=== PATIENT | female | born 1970 | race Caucasian/White ===

== ENCOUNTER 2022-12-01 16:09 | Inpatient (IN) ==
[2022-12-01] MEDS ORDERED: oxyCODONE HCL IR 5 MG TAB (IMMEDIATE RELEASE) PO STA (17:04)
--- NOTE | 2022-12-01 17:59 | XRay Report ---
XR ankle RT min 3V routine CLINICAL HISTORY: s/p fall TECHNIQUE: 3 views of the right ankle were obtained. Comparison: None available at the time of this dictation. FINDINGS: There are comminuted fractures of the fibula above the tibiofibular syndesmosis. In addition there ar e fractures of the medial and likely posterior malleolus. There is dislocation of the tibiotalar join t. Widening of the ankle mortise is seen. Soft tissue swelling is seen about the ankle. IMPRESSION: Granger C fracture of the fibula with dislocation of the tibiotalar joint and fractures of the medial a nd likely posterior malleolus. There is ankle mortise widening compatible with syndesmotic injury. ACT 112: Negative or not required by law. Electronically signed by: Reggie Schaeffer M.D. 12/01/2022 5:58 PM
--- NOTE | 2022-12-01 18:04 | XRay Report ---
XR knee LT 1 or 2V routine CLINICAL HISTORY: s/p fall TECHNIQUE: 2 views of the left knee were obtained. Comparison: None available at the time of this dictation. FINDINGS: There is no evidence of an acute fracture. Joint spaces are well-preserved. No joint effusion is seen . A fabella is incidentally seen. IMPRESSION: No evidence of acute osseous injury. ACT 112: Negative or not required by law. Electronically signed by: Reggie Schaeffer M.D. 12/01/2022 6:02 PM
[2022-12-01] MEDS ORDERED: SODIUM CHLORIDE 0.9% 500 ML IV ONE (18:12)
[2022-12-01] MEDS ORDERED: ONDANSETRON INJ 2 MG/ML 2 ML VIAL IV STA (18:12)
[2022-12-01] MEDS ORDERED: MoRPHine SULFATE 10 MG/ML CARP/VIAL IV STA (18:12)
[2022-12-01] MEDS ORDERED: KETOROLAC TROMETHAMINE 15 MG/ML VIAL IV STA (18:12)
[2022-12-01] MEDS ORDERED: fentaNYL citrate PF 100 MCG/2 ML VIAL IV ONE (18:49)
[2022-12-01 19:33] LABS: Hematocrit (blood only) 40.5 % (37.0-47.0); Hemoglobin 13.6 g/dl (12.0-16.0); Mean Corpuscular Hemoglobin 29.1 pg (25.0-34.0); Mean Corpuscular Hgb Conc 33.6 g/dL (32.0-36.0); Mean Corpuscular Volume 86.7 fL (80.0-100.0); Mean Platelet Volume 10.3 fL (9.4-12.4); Platelet Count 318 K/uL (130-400); RDW Coefficient of Variation 13.2 % (11.5-14.5); RDW Standard Deviation 41.5 fL (36.4-46.3); Red Blood Count 4.67 M/uL (4.20-5.40); White Blood Count 13.89 K/ul (4.8-10.8)
--- NOTE | 2022-12-01 19:42 | History & Physical Report ---
Date of Service December 01, 2022 Assessment & Plan (1) Ankle fracture: Plan: Pain management: acetaminophen 1g PO TID, morphine 4mg IV q4h PRN Splint placed in the ER Elevate right lower extremity Consult orthopedics NPO after midnight with IV fluids (2) Mild obstructive sleep apnea: Plan: CPAP HS (3) Hyperlipidemia: Plan: Continue rosuvastatin Plan VTE Prophylaxis - deferred pre-operatively, will defer to orthopedics post operatively Diet - regular, NPO after midnight Disposition - observation status to med/surg Admission and Anticipated Discharge Date Admission Date: December 01, 2022 History of Present Illness Chief Complaint: Ankle pain Primary Care Provider: Cristofer Chi Cathie Lozano is a 52 year old female who presents to the ER with right ankle pain following a fall from 1 foot onto rock pile while hiking. No chest pain, shortness of breath or dizziness prior to falling. Severe pain in her right ankle and knee following fall. Unable to weight bear. Severity 8/10. No other injuries noted from the fall. No history of strokes or heart attacks. She feels she is unfit but no significant chest pain or shortness of breath with walking. Allergies Allergy/AdvReac Type Severity Reaction Status Date / Time Sulfa (Sulfonamide Allergy Intermediate RASH Verified 12/01/22 18:36 Antibiotics) Home Medications Medication Instructions Recorded Confirmed Type rosuvastatin 5 mg tablet 5 mg PO DAILY 01/26/21 12/01/22 History Past Med/Surg History Medical History (Updated 12/01/22 @ 22:03 by Mundo Flores MD) Bruxism Hyperlipidemia Mild obstructive sleep apnea Nocturnal hypoxemia Surgical History H/O hysterectomy with oophorectomy (~11/2013) History of mandibular surgery Family History Other Asthma Social History Smoking Status: Never smoker Hx Alcohol Use: Yes marital status: Current Living Situation: Family current occupational status: employed Feels Safe at Home: Yes Review of Systems Review of Systems: All systems reviewed & are unremarkable except as noted in HPI & below Physical Exam Constitutional: WD/WN, vitals as above Respiratory: normal respiratory effort, lungs clear to auscultation Cardiovascular: RRR, no murmur, no edema Gastrointestinal (Abdomen): normal bowel sounds, soft, nontender, no hepatosplenomegaly Musculoskeletal: Swollen diffusely painful right ankle to palpation. Sensation intact, Cap refill in 1st toe < 2 seconds, DP pulse intact. Skin: no rashes, warm and dry Neurologic: awake; not confused Psychiatric: A+Ox3, euthymic affect Results & Data Results & Data ([facility]) Vital Signs (Past 12 Hours) Vital Signs Temp Pulse Pulse Resp BP BP Pulse Ox 12/01/22 19:00 96 H 18 146/85 H 95 12/01/22 16:29 36.8 C 96 H 20 138/85 98 O2 Del Method 12/01/22 19:00 Room Air 12/01/22 16:29 Room Air Laboratory Results Abnormal lab results 12/01/22 12/01/22 Range/Units 18:40 18:40 WBC 13.89 H (4.8-10.8) K/ul BUN/Creatinine Ratio 23.2 H (10-20) Glucose 106 H (70-99(Fasting)) mg/dl Diagnostic Findings XR ankle RT min 3V routine CLINICAL HISTORY: s/p fall TECHNIQUE: 3 views of the right ankle were obtained. Comparison: None available at the time of this dictation. FINDINGS: There are comminuted fractures of the fibula above the tibiofibular syndesmosis. In addition there are fractures of the medial and likely posterior malleolus. There is dislocation of the tibiotalar joint. Widening of the ankle mortise is seen. Soft tissue swelling is seen about the ankle. IMPRESSION: Granger C fracture of the fibula with dislocation of the tibiotalar joint and fractures of the medial and likely posterior malleolus. There is ankle mortise widening compatible with syndesmotic injury. XR knee LT 1 or 2V routine CLINICAL HISTORY: s/p fall TECHNIQUE: 2 views of the left knee were obtained. Comparison: None available at the time of this dictation. FINDINGS: There is no evidence of an acute fracture. Joint spaces are well-preserved. No joint effusion is seen. A fabella is incidentally seen. Medications Administered ER Medications Given: Oxycodone 5mg PO NSS 500ml bolus Morphine 6mg IV Code Status & VTE Plan Code Status Full VTE Prophylaxis Plan VTE Prophylaxis will be ordered: Yes PG Care Time/CCT Total # of Minutes Spent Total Time Spent with Patient: Total time spent is greater than 50% in coordination of care (as documented) at patient's floor/unit and/or counseling patient: Coding Level of Care Code 68902 INT INP/OBS CARE 2/55MIN Diagnoses Ankle fracture S82.899A Mild obstructive sleep apnea G47.33 Hyperlipidemia E78.5
[2022-12-01] MEDS ORDERED: MoRPHine SULFATE 4 MG/ML 1 ML CARP\\VIAL IV STA (20:14)
[2022-12-01 21:08] LABS: Anion Gap 10 (3-11); Calcium 9.5 mg/dl (8.5-10.1); Carbon Dioxide 25 mmol/L (21-32); Chloride 103 mmol/L (98-107); Potassium 3.7 mmol/L (3.5-5.1); Sodium 138 mmol/L (136-145)
--- NOTE | 2022-12-01 21:08 | Emergency Department Note ---
ED Provider Note History of Present Illness Chief Complaint: Leg Injury/Pain Stated Complaint: FALL,TWISTED L KNEE,R ANKLE PAIN Time Seen by Provider: 12/01/22 16:43 52-year-old female who presents to the emergency department with her son for evaluation of injuries after she fell while hiking this afternoon. The patient reports that she was trying to cross a [place], stepping up onto a log, losing her balance and falling. The patient reports severe pain in her right ankle with a crunching sensation. She also reports left knee pain, and was unable to stand up on the knee because of pain. She did have lots of assistance in helping her out of the gonzalez. The patient denies head injury, neck pain, back pain, chest pain or shortness of breath. She rates her discomfort an 8 out of 10. Home Medications Medication Instructions Recorded Confirmed Type rosuvastatin 5 mg tablet 5 mg PO DAILY 01/26/21 12/01/22 History Allergies Allergy/AdvReac Type Severity Reaction Status Date / Time Sulfa (Sulfonamide Allergy Intermediate RASH Verified 12/01/22 18:36 Antibiotics) Past Med/Surg History Medical History Bruxism Hyperlipidemia Mild obstructive sleep apnea Nocturnal hypoxemia Surgical History H/O hysterectomy with oophorectomy (~11/2013) History of mandibular surgery Family History Other Asthma Social History Smoking Status: Never smoker Hx Alcohol Use: Yes Alcohol type: wine Hx Substance Use: No Preferred Language: Romanian Communication Ability: Effective 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 Beliefs That Will Affect Care: None marital status: Current Living Situation: Spouse and Family Current Living Situation Comment: Lives at home with and 3 kids current occupational status: employed Other Information That Helps Us Care for You: No Feels Safe at Home: Yes Safety Concerns: Feels Safe At This Time Assistive Devices: Glasses Physical Exam Vital Signs Vital Signs - 24 hr 12/01/22 16:29 12/01/22 19:00 Temperature 36.8 C Temperature Source Temporal Artery Scan Pulse Rate 96 H Pulse Rate [Finger] 96 H Respiratory Rate 20 18 Respiratory Effort / Characteristics Non-Labored Respiratory Depth Normal Blood Pressure 138/85 Blood Pressure [Right Arm] 146/85 H Blood Pressure Mean 102 Blood Pressure Mean [Right Arm] 105 Pulse Oximetry 98 95 Oxygen Delivery Method Room Air Room Air Sepsis Recent Fever Within 48 Hours No Sepsis New/Unexplained Change in Mental Status N/A Sepsis Action Taken by Nursing No Action Required CONSTITUTIONAL: Healthy and well nourished. Alert and oriented X 3. GCS 15. Patient appears in moderate discomfort from mostly ankle pain. HEENT: Normocephalic, atraumatic. Pupils equal, round and reactive. NECK: Full active range of motion without discomfort. RESPIRATORY: Clear to auscultation bilaterally with no wheezing, crackles, rhon chi or stridor. CARDIOVASCULAR: Regular rate and rhythm with no murmurs, rubs or gallops. GASTROINTESTINAL: Bowel sounds present in all quadrants. Abdomen is soft and nontender to palpation MUSCULOSKELETAL: Examination shows obvious deformity of the right ankle without any open wounds. Pedal pulses are intact. Patient has no obvious tenderness to palpation of the right proximal leg or knee region. Examination of the left knee shows mild soft tissue edema and anterior ecchymosis. No obvious ligamentous laxity, although full examination was difficult because of patient discomfort. Pedal pulses are intact bilaterally. INTEGUMENTARY: No rash or other significant dermatologic conditions noted. HEMATOLOGIC: No ecchymosis or petechiae. PSYCHIATRIC: Positive affect. NEUROLOGIC: Bilateral lower extremities are sensory intact. Procedures Free Text Procedures Ankle fracture dislocation reduction was performed by me after administering a total of fentanyl 150 mcg IVP for analgesia. The patient remained hemodyn amically stable throughout the procedure. After allowing adequate time for good pain control, reduction was then performed with anterior traction on the calcaneus, with simultaneous medial pressure on the lateral heel/ankle region, as well as molding of the distal fibula. While holding this reduction in place, our fire technician then applied a soft wrap. Initial x-rays in AP view shows good fracture reduction, and suspected good tibiotalar reduction as well. At this point, an Ortho-Glass posterior and stirrup splint was applied. It is noted that the patient maintaining good capillary refill of the toes after reduction and splinting. Repeat 2 view x-rays of the ankle shows adequate reduction. Course Course Patient history and physical exam were performed. Nurses notes were reviewed. Vital signs were reviewed. The patient was initially administered Oxy IR 5 mg for the pain until x-rays could be performed. X-rays of the left knee showed a nondisplaced lateral tibial plateau fracture. X-rays of the right ankle and shows a notable trimalleolar fracture dislocation. X-rays were reviewed with the patient. I did recommend starting an IV for IV pain management, as well as to provide relief for ankle fracture/dislocation reduction. IV access was established, and baseline labs were drawn, reviewed and were normal. There was a delay in this procedure while awaiting staff availability because of change of shift. I did personally perform frequent neurovascular checks every 15 minutes with no compromise throughout this delay period. After having staff availability, successful fracture dislocation was performed using IV fentanyl and Zofran. Postreduction x-rays show satisfactory alignment. The case was discussed with Dr. Pollard, orthopedic surgeon on-call, who recommended that after successful reduction was performed with postreduction x- rays, he has requested a noncontrast CT of the ankle with 3D reconstruction for surgical planning. He also requested hospitalist admission, and he will evalua te the patient in the morning. I did discuss this case with Dr. Flores, [facility] hospitalist, who also spoke with Dr. Pollard on the phone, and has agreed to hospitalist admission. The patient was administered additional IV morphine after her reduction. A knee immobilizer was also applied to the left knee. Please see hospitalist and orthopedic documentation for further treatment and final disposition. An additional final neurovascular check was performed prior to the patient being sent to the [facility] floor, and was still intact while under my care. Administered Medications Acetaminophen (Acetaminophen 500 Mg Tab) 1,000 mg PO Q8 EMILY Stop: 12/31/22 21:59 Last Admin: 12/02/22 05:48 Dose: 1,000 mg Documented By: Admin: 12/01/22 21:31 Dose: 1,000 mg Documented By: ANDRES Lactated Ringer's (Lr) 1,000 mls @ 125 mls/hr IV .Q8H EMILY Stop: 12/02/22 15:59 Last Admin: 12/02/22 09:13 Dose: 125 mls/hr Documented By: Infusion: 12/02/22 09:12 Dose: 0 mls/hr Documented By: Admin: 12/02/22 00:16 Dose: 125 mls/hr Documented By: ANDRES Morphine Sulfate (Morphine Sulfate 4 Mg/Ml 1 Ml Carp\Vial) 4 mg IV Q4H PRN PRN Reason: Pain Stop: 12/15/22 21:24 Last Admin: 12/02/22 09:25 Dose: 4 mg Documented By: Admin: 12/02/22 02:43 Dose: 4 mg Documented By: Admin: 12/01/22 21:47 Dose: 4 mg Documented By: ANDRES Rosuvastatin Calcium (Rosuvastatin Calcium 5 Mg Tab) 5 mg PO DAILY EMILY Stop: 01/01/23 08:59 Last Admin: 12/02/22 07:46 Dose: 5 mg Documented By: INGRID Discontinued Medications Fentanyl Citrate (Fentanyl Citrate 100 Mcg/2 Ml Vial) 200 mcg IV NOW ONE Stop: 12/01/22 18:50 Last Increment: 12/01/22 19:50 Dose: 50 mcg Documented By: JEF Increment: 12/01/22 19:43 Dose: 100 mcg Documented By: JEF Sodium Chloride (Nss) 500 mls @ 999 mls/hr IV .Q31M ONE Stop: 12/01/22 18:42 Last Infusion: 12/01/22 21:12 Dose: 0 mls/hr Documented By: Admin: 12/01/22 20:27 Dose: 999 mls/hr Documented By: MARGUERITE Ketorolac Tromethamine (Ketorolac Tromethamine 15 Mg/Ml Vial) 15 mg IV NOW STA Stop: 12/01/22 18:13 Last Admin: 12/01/22 22:07 Dose: Not Given Documented By: ANDRES Morphine Sulfate (Morphine Sulfate 10 Mg/Ml Carp/Vial) 6 mg IV NOW STA Stop: 12/01/22 18:13 Last Admin: 12/01/22 20:15 Dose: Not Given Documented By: MARGUERITE Morphine Sulfate (Morphine Sulfate 4 Mg/Ml 1 Ml Carp\Vial) 4 mg IV NOW STA Stop: 12/01/22 20:15 Last Admin: 12/01/22 20:28 Dose: 4 mg Documented By: MARGUERITE Ondansetron HCl (Ondansetron Inj 2 Mg/Ml 2 Ml Vial) 4 mg IV NOW STA Stop: 12/01/22 18:13 Last Admin: 12/01/22 20:19 Dose: 4 mg Documented By: JEF Oxycodone HCl (Oxycodone Hcl Ir 5 Mg Tab (Immediate Release)) 5 mg PO NOW STA Stop: 12/01/22 17:05 Last Admin: 12/01/22 17:12 Dose: 5 mg Documented By: MACK Medical Decision Making Medical Records Attestation: I reviewed the patient's medical records. Home Medications was personally reviewed by me Laboratory Data Attestation: I reviewed the patient's lab results. 12/01/22 18:40 12/01/22 18:40 Lab Results 12/01/22 12/01/22 12/01/22 Range/Units 18:39 18:40 18:40 WBC 13.89 H (4.8-10.8) K/ul RBC 4.67 (4.20-5.40) M/uL Hgb 13.6 (12.0-16.0) g/dl Hct 40.5 (37.0-47.0) % MCV 86.7 (80.0-100.0) fL MCH 29.1 (25.0-34.0) pg MCHC 33.6 (32.0-36.0) g/dL RDW Std Deviation 41.5 (36.4-46.3) fL RDW Coeff of Arthur 13.2 (11.5-14.5) % Plt Count 318 (130-400) K/uL MPV 10.3 (9.4-12.4) fL Sodium 138 (136-145) mmol/L Potassium 3.7 (3.5-5.1) mmol/L Chloride 103 (98-107) mmol/L Carbon Dioxide 25 (21-32) mmol/L Anion Gap 10 (3-11) BUN 19 (6-23) mg/dl Creatinine 0.82 (0.6-1.2) mg/dl Est Cr Clr Drug Dosing Not Reportable Est GFR ( Amer) 94.7 ml/min Est GFR (Non-Af Amer) 81.7 ml/min BUN/Creatinine Ratio 23.2 H (10-20) Glucose 106 H (70-99(Fasting)) mg/dl Calcium 9.5 (8.5-10.1) mg/dl SARS-CoV-2, RNA, NAAT NEGATIVE (NEGATIVE) Imaging Data Attestation: I personally reviewed and interpreted this imaging study as follows: My Impression: My interpretation of initial left knee x-ray shows a nondisplaced lateral tibial plateau fracture. Radiologist does not call this fracture. My interpretation of initial right ankle x-ray shows evidence for a trimalleolar fracture dislocation. My interpretation of initial AP view of the right ankle after post reduction shows adequate AP alignment. After additional splinting was applied, a formal 2 view postreduction x-ray was performed, showing adequate reduction. An additional anterior tibial fracture segment is also noted on these x-rays. My interpretation of a noncontrast CT of the ankle again shows adequate reduction, with additional fracture details as discussed on the following radiologist report, which is similar to my interpretation of the above fractures. Radiologist's Impression: Ankle X-Ray 12/01/22 17:04 XR ankle RT min 3V routine CLINICAL HISTORY: s/p fall TECHNIQUE: 3 views of the right ankle were obtained. Comparison: None available at the time of this dictation. FINDINGS: There are comminuted fractures of the fibula above the tibiofibular syndesmosis. In addition there are fractures of the medial and likely posterior malleolus. There is dislocation of the tibiotalar joint. Widening of the ankle mortise is seen. Soft tissue swelling is seen about the ankle. IMPRESSION: Granger C fracture of the fibula with dislocation of the tibiotalar joint and fractures of the medial and likely posterior malleolus. There is ankle mortise widening compatible with syndesmotic injury. ACT 112: Negative or not required by law. Electronically signed by: Reggie Schaeffer M.D. 12/01/2022 5:58 PM Knee X-Ray 12/01/22 17:04 XR knee LT 1 or 2V routine CLINICAL HISTORY: s/p fall TECHNIQUE: 2 views of the left knee were obtained. Comparison: None available at the time of this dictation. FINDINGS: There is no evidence of an acute fracture. Joint spaces are well-preserved. No joint effusion is seen. A fabella is incidentally seen. IMPRESSION: No evidence of acute osseous injury. ACT 112: Negative or not required by law. Electronically signed by: Reggie Schaeffer M.D. 12/01/2022 6:02 PM [facility] Narrative Definitive Fracture Care: Right ankle fracture dislocation, closed, significant displacement with adequate postreduction alignment. Plan: immobilization, narcotic analgesics per hospitalist inpatient orders, and surgical management tomorrow with orthopedics. Splint Care: After the Orthoglass splint was applied by the ED pest control technician, and while I was performing constant traction, I examined the splint and confirmed proper application/placement/position. Neurovascular status was intact both proximal and distal to the splinted area. See ED course for further details of the today's visit. The patient essentially fell while hiking today, suffering a fracture dislocation of the right ankle. Successful reduction was performed by me under IV analgesics. The case was also discussed with orthopedics, who has recommended reduction and splinting until he can evaluate the patient tomorrow for surgical management. Patient also has a nondisplaced left lateral tibial plateau fracture that should heal well on its own. A knee immobilizer was applied for initial management. Further exam ination does not show any other concerning injuries from the patient's fall. Impression Closed fracture dislocation of right ankle, Closed fracture of lateral portion of left tibial plateau Discharge Plan Visit Data Chief Complaint: Leg Injury/Pain Stated Complaint: FALL,TWISTED L KNEE,R ANKLE PAIN ED Provider: Dejon Woods ED Midlevel Provider: Jose Manuel Garcia Discharge Problem: Closed fracture dislocation of right ankle, Closed fracture of lateral portion of left tibial plateau Patient Disposition: Admitted As Inpatient Discharge Instructions Interventions: ED Discharge Assessment Last Done: 12/01/22 21:13 Closed fracture dislocation of right ankle Qualifiers: Encounter type: initial encounter Qualified Code(s): S82.891A - Other fracture of right lower leg, initial encounter for closed fracture Closed fracture of lateral portion of left tibial plateau Qualifiers: Encounter type: initial encounter Qualified Code(s): S82.122A - Displaced fracture of lateral condyle of left tibia, initial encounter for closed fracture
[2022-12-01] MEDS ORDERED: ONDANSETRON INJ 2 MG/ML 2 ML VIAL IV PRN (21:11)
[2022-12-01] MEDS ORDERED: POLYETHYLENE (MIRALAX) 17 GM PACK PO PRN (21:11)
[2022-12-01 21:14] LABS: BUN Creatinine Ratio 23.2 (10-20); Blood Urea Nitrogen 19 mg/dl (6-23); Est GFR (African American) 94.7 ml/min; Est GFR (Non-African American) 81.7 ml/min; Glucose 106 mg/dl (70-99(Fasting))
--- NOTE | 2022-12-01 21:17 | CT Scan Report ---
Exam(s): CT RIGHT ANKLE Without Contrast EXAM: CT Right Lower Extremity Without Intravenous Contrast, Ankle CLINICAL HISTORY: Reason for exam: R ankle fx/dislocation - 3D recon please. TECHNIQUE: Axial computed tomography images of the right ankle without intravenous contrast. CTDI is 19 mGy and DLP is 436.4 mGy-cm. Automated exposure control was utilized for the study. A dose lowering technique was utilized adhering to the principles of ALARA. COMPARISON: No relevant prior studies available. FINDINGS: Trimalleolar fracture (variant), consisting of: 1. Displaced fracture of the medial malleolus, which is mildly comminuted. Widening of the medial ankle mortise measures 5 mm. 2. Mildly displaced, comminuted fracture of the distal fibula, located approximately 10 cm proximal to the distal fibula tip. 3. Mildly displaced, intra-articular fracture of the posterior, distal tibia with approximately 2.5 mm cortical step-off at the articular surface. Intact talus and calcaneus. Circumferential subcutaneous edema. IMPRESSION: Trimalleolar fracture (variant), consisting of: 1. Displaced fracture of the medial malleolus, which is mildly comminuted. Widening of the medial ankle mortise measures 5 mm. 2. Mildly displaced, comminuted fracture of the distal fibula, located approximately 10 cm proximal to the distal fibula tip. 3. Mildly displaced, intra-articular fracture of the posterior, distal tibia with approximately 2.5 mm cortical step-off at the articular surface. Electronically signed by: Abdirahman Carlton MD 12/01/22 21:17 PM
[2022-12-01] MEDS: ACETAMINOPHEN 500 MG TAB PO SCH (21:31)
[2022-12-01] MEDS: MoRPHine SULFATE 4 MG/ML 1 ML CARP\\VIAL IV PRN (21:47)
[2022-12-02] MEDS: LACTATED RINGER'S 1,000 ML IV SCH ×2 (00:16→09:13)
[2022-12-02] MEDS: MoRPHine SULFATE 4 MG/ML 1 ML CARP\\VIAL IV PRN ×2 (02:43→09:25)
[2022-12-02] MEDS: ACETAMINOPHEN 500 MG TAB PO SCH ×3 (05:48→22:39)
[2022-12-02] MEDS: ROSUVASTATIN CALCIUM 5 MG TAB PO SCH (07:46)
--- NOTE | 2022-12-02 07:46 | Hospitalist Progress Note ---
Date of Service December 02, 2022 Assessment & Plan (1) Ankle fracture: Plan: Presented with right ankle pain following a fall yesterday, with right lower extremity imaging showing trimalleolar fracture Patient with continued significant pain despite morphine, so will transition to Dilaudid 1 mg every 4 hours as needed with scheduled Tylenol 1000 mg every 8 hours Orthopedics consulted, for surgical fixation of right trimalleolar fracture today 12/02/2022 Will ultimately need PT and OT to assist with dispo planning (2) Mild obstructive sleep apnea: Plan: CPAP HS (3) Hyperlipidemia: Plan: Continue rosuvastatin (4) Knee pain, left: Plan: In the setting of fall with other injuries as described above Pain control also described above, but can also use ice for knee pain and swelling (5) Leukocytosis: Plan: WBC count of 13.89, no previous labs to compare, will repeat tomorrow but do anticipate this is stress response No evidence of localizable infection Plan VTE Prophylaxis - will defer to orthopedics post operatively Diet - n.p.o. until after surgery, then can have regular diet Disposition - med/surg Admission and Anticipated Discharge Date Admission Date: December 01, 2022 Subjective Patient without any acute events overnight. Reports significant pain in her right ankle and left knee. No other complaints such as chest pain, shortness of breath, lightheadedness. Review of Systems Review of Systems: All systems reviewed & are unremarkable except as noted in Subjective Physical Exam Constitutional: WD/WN, vitals as above Respiratory: normal respiratory effort, lungs clear to auscultation Cardiovascular: RRR, no murmur, no edema Gastrointestinal (Abdomen): normal bowel sounds, soft, nontender, no hepatosplenomegaly Skin: no rashes, warm and dry Psychiatric: A+Ox3, euthymic affect Results & Data Results & Data ([facility]) Vital Signs (Past 12 Hours) Vital Signs Temp Pulse Resp BP Pulse Ox O2 Del Method 12/01/22 20:55 37.3 C 113 H 20 156/80 H 96 Room Air PG Care Time/CCT Total # of Minutes Spent Total Time Spent with Patient: Total time spent is greater than 50% in coordination of care (as documented) at patient's floor/unit and/or counseling patient: Coding Level of Care Code 41085 SUB INP/OBS CARE 2/35MIN Diagnoses Ankle fracture S82.899A Mild obstructive sleep apnea G47.33 Hyperlipidemia E78.5 Knee pain, left M25.562 Leukocytosis D72.829
--- NOTE | 2022-12-02 08:20 | XRay Report ---
XR ankle RT min 3V routine CLINICAL HISTORY: Post-reduction XR TECHNIQUE: 3 views of the right ankle were obtained. Comparison: Comparison is made to abdomen radiograph 12/01/2022 FINDINGS: The foot has been placed in a cast limiting fine bony detail. Comminuted fractures of the fibula as w ell as the medial and posterior malleolus are again seen. The tibiotalar dislocation has been reduced . Tibiofibular widening is somewhat improved. Soft tissue swelling is seen about the ankle. IMPRESSION: Redemonstration of trimalleolar fracture with improved appearance of the fracture fragments. ACT 112: Negative or not required by law. Electronically signed by: Reggie Schaeffer M.D. 12/02/2022 8:18 AM
[2022-12-02] MEDS ORDERED: ROPIVACAINE 0.5% 5 MG/ML 30 ML VIAL ONE (08:23)
--- NOTE | 2022-12-02 08:49 | Orthopedic Consultation ---
Date of Service December 02, 2022 Assessment & Plan (1) Closed fracture dislocation of right ankle: Discussed options with the patient. Given the nature and instability of the right ankle fracture orthopedics recommends surgical fixation of the fracture. We discussed open reduction internal fixation of the fracure including the risks, benefits, and prognosis of the surgery. Decision for surgery was made, she was placed on the surgical schedule for today. She is to remain NPO. The care plan was discussed with Dr. Cristofer Ruano and is in full agreeement. History of Present Illness Reason for Consultation: . Requesting Physician: . Attending Physician: Szuette Whitt DO Patient is a 51 y/o female who was hiking with her family yesterday at [facility]. She jumped up on a log but slipped off and fell. She landed awkwardly on her right ankle and left knee. She could not bear any weight on her ankle. Her family members helped her out of the [place] and got her to [facility] ER. Xrays confirmed a bimalleolar fracture of her right ankle. The fracture was reduced and splinted. She was admitted to the medical service for treatment and care. Orthopedics was consulted. Allergies Allergy/AdvReac Type Severity Reaction Status Date / Time Sulfa (Sulfonamide Allergy Intermediate RASH Verified 12/01/22 18:36 Antibiotics) Home Medications Medication Instructions Recorded Confirmed Type rosuvastatin 5 mg tablet 5 mg PO DAILY 01/26/21 12/01/22 History Past Med/Surg History Medical History Bruxism Hyperlipidemia Mild obstructive sleep apnea Nocturnal hypoxemia Surgical History H/O hysterectomy with oophorectomy (~11/2013) History of mandibular surgery Family History Other Asthma Social History Smoking Status: Never smoker Hx Alcohol Use: Yes Alcohol type: wine Hx Substance Use: No Preferred Language: Lithuanian Communication Ability: Effective Dental Assistant Medical Assistant Required: No Beliefs That Will Affect Care: None marital status: Current Living Situation: Spouse and Family Current Living Situation Comment: Lives at home with and 3 kids current occupational status: employed Other Information That Helps Us Care for You: No Feels Safe at Home: Yes Safety Concerns: Feels Safe At This Time Assistive Devices: Glasses Review of Systems All systems reviewed & are unremarkable except as noted in HPI & below. Physical Exam Patient resting comfortably in bed. Right ankle is well splinted and padded. She has good distal pulses, capillary refill, and she is neurovascularly intact. Results & Data Results & Data Laboratory Results . Diagnostic Findings . PG Care Time/CCT Total # of Minutes Spent Total Time Spent with Patient: Total time spent is greater than 50% in coordination of care (as documented) at patient's floor/unit and/or counseling patient: Coding Level of Care Code 67363 IN/OBS CONSULT LVL 3,45M Diagnoses Closed fracture dislocation of right ankle S82.891A Encounter type: initial encounter (1) Closed fracture dislocation of right ankle Encounter type: initial encounter Qualified Code(s): S82.891A - Other frac ture of right lower leg, initial encounter for closed fracture
--- NOTE | 2022-12-02 11:36 | History & Physical Bridge Note ---
Date of Service December 02, 2022 History & Physical Bridge Note I have examined the patient, reviewed the History & Physical and in the interval since the performance of the History & Physical I have noted the following changes of clinical significance: no changes noted
[2022-12-02] MEDS ORDERED: MIDAZOLAM HCL 1 MG/ML 2ML VIAL ONE ×2 (11:37)
[2022-12-02] MEDS ORDERED: fentaNYL citrate PF 100 MCG/2 ML VIAL ONE ×2 (11:37→12:50)
[2022-12-02] MEDS ORDERED: ceFAZolin 2000MG 2,000 MG/15 ML SYR IV ONE (11:48)
[2022-12-02] MEDS ORDERED: LIDOCAINE 2% MPF LOCAL 5 ML VIAL INFIL ONE (11:54)
[2022-12-02] MEDS ORDERED: ONDANSETRON INJ 2 MG/ML 2 ML VIAL ONE (11:54)
[2022-12-02] MEDS ORDERED: PROPOFOL IV EMULSION 10 MG/ML 20 ML VIAL IV ONE (11:54)
[2022-12-02] MEDS ORDERED: ceFAZolin 2,000 MG/15 ML IV PUSH IV ONE (11:54)
[2022-12-02] MEDS ORDERED: BUPIVACAINE/EPINEPHRINE 0.25% 1:200,000 30 ML VIAL ONE (12:02)
[2022-12-02] MEDS ORDERED: ONDANSETRON INJ 2 MG/ML 2 ML VIAL IV PRN (12:15)
[2022-12-02] MEDS ORDERED: fentaNYL citrate PF 100 MCG/2 ML VIAL IV PRN (12:15)
[2022-12-02] MEDS ORDERED: ATROPINE SULFATE 0.1 MG/ML 10ML SYR IV PRN (12:15)
[2022-12-02] MEDS ORDERED: HYDROmorphone INJ 2 MG/ML SYR/VIAL IV PRN (12:15)
[2022-12-02] MEDS ORDERED: ePHEDrine sulfate 50 MG/ML AMP IV PRN (12:15)
--- NOTE | 2022-12-02 12:17 | Anesthesiology Consultation ---
Date of Service December 02, 2022 Assessment & Plan ASA ASA2 Proposed Anesthesia Anesthesia Type: General Regional Regional Laterality: Right Site: Popliteal and Adductor Canal Risk / Benefits Reviewed With: PT / POA / Parent / Guardian, Accepts Plan and Informed Consent Obtained History Surgery Operation Date: 12/02/22 08:20 Proposed Procedures p Right Open Reduction Internal Fixation Ankle - Cristofer Ruano DO Height/Weight Height: 5 ft 5 in Weight: 112 kg Allergies Allergy/AdvReac Type Severity Reaction Status Date / Time Sulfa (Sulfonamide Allergy Intermediate RASH Verified 12/01/22 18:36 Antibiotics) Medications Home Medications Medication Instructions Recorded Confirmed Last Taken rosuvastatin 5 mg tablet 5 mg PO DAILY 01/26/21 12/01/22 12/01/22 Active Medications Generic Name Dose Route Start Last Admin Trade Name Freq PRN Reason Stop Dose Admin Acetaminophen 1,000 mg 12/01/22 22:00 12/02/22 11:11 Acetaminophen 500 Mg Tab PO 12/31/22 21:59 1,000 mg Q8 EMILY Administration Lactated Ringer's 1,000 mls @ 125 mls/hr 12/02/22 00:00 12/02/22 09:13 Lr IV 12/02/22 15:59 125 mls/hr .Q8H EMILY Administration Rosuvastatin Calcium 5 mg 12/02/22 09:00 12/02/22 07:46 Rosuvastatin Calcium 5 Mg Tab PO 01/01/23 08:59 5 mg DAILY EMILY Administration NPO Date Last Intake of Fluids: 12/01/22 Time Last Intake of Fluids: 23:00 Date Last Intake of Solids: 12/01/22 Time Last Intake of Solids: 22:00 Past Medical History Medical History Bruxism Hyperlipidemia Mild obstructive sleep apnea Nocturnal hypoxemia Exercise / Class Metabolic Activity II 4-5 Yardwork/Stairs/Walk up hill Past Family History Family History Other Asthma Past Surgical History Surgical History H/O hysterectomy with oophorectomy (~11/2013) History of mandibular surgery Past Anesthesia History No Hx of Anesthesia Complications and No Family Hx of Anesthesia Complications History of PONV No Hx of PONV and No Hx of Motion Sickness Social History Smoking Status: Never smoker Hx Alcohol Use: Yes Alcohol type: wine alcohol intake frequency: a few times a month Hx Substance Use: No Review of Systems denies fever/cough/ colds/ chest pain/ SOB/ KENDALL denies KENDALL Physical Exam Vital Signs Last Vital Signs Temp 37 C 12/02/22 11:43 Pulse 100 H 12/02/22 11:43 Resp 18 12/02/22 11:43 BP 141/88 H 12/02/22 11:43 Pulse Ox 95 12/02/22 11:43 O2 Del Method Room Air 12/02/22 11:43 ENMT Mouth: no TMJ abnormality and no dentition abnormality Thyromental Distance: > or= 3.5 Finger Breadths Mallampati Class: II Neck neck extension not limited Respiratory normal respiratory effort; no respiratory distress Auscultation: lungs clear to auscultation bilaterally Cardiovascular Rate/Rhythm: regular rate and regular rhythm Neurologic moves all extremities Psychiatric Orientation: alert and oriented x 3 Testing Laboratory Results 12/01/22 18:40 12/01/22 18:40
[2022-12-02] MEDS ORDERED: BUPIVACAINE 0.25% PF 30 ML VIAL ONE (12:21)
[2022-12-02] MEDS ORDERED: METOCLOPRAMIDE HCL INJ 5 MG/ML 2 ML VIAL ONE (13:05)
[2022-12-02] MEDS ORDERED: DEXAMETHASONE SOD INJ 4 MG/ML VIAL ONE (13:05)
[2022-12-02] MEDS ORDERED: KETAMINE 50 MG/5 ML SYRINGE ONE (13:05)
[2022-12-02] MEDS ORDERED: FAMOTIDINE/PF 20 MG/2 ML VIAL IV ONE (13:24)
[2022-12-02] MEDS ORDERED: KETOROLAC 30 MG/ML VIAL ONE (14:27)
--- NOTE | 2022-12-02 14:47 | Operative Report ---
PG Post Operative Report Pre & Post Diagnosis Operation Date: 12/02/22 08:20 Pre-Op Diagnosis: Fracture dislocation trimalleolar fracture of the right ankle Post-Op Diagnosis: Fracture dislocation trimalleolar fracture of the right ankle I identified the patient and participated in the time-out.: Yes Procedure Operation Date: 12/02/22 08:20 Actual Procedures p Right Open Reduction Internal Fixation trimalleolar right ankle fracture- Cristofer Ruano DO Surgeon Cristofer Ruano DO Casting Associate Cristofer Frausto PA-C Estimated Blood Loss 20 Findings Consistent with Post-Op Diagnosis Specimens None Description of Procedure On December 02, 2022 Cathie was brought down from her hospital room to the preoperative holding area. The operative extremity identified and signed. She was given a preoperative antibiotic. She was taken back to the operative room and laid on the table in supine position. She was put under general anesthesia. The right ankle was prepped and draped in sterile fashion. A timeout was done. The patient and the operative extremity was properly identified. The medial side was fixed first. A curvilinear incision was made over the medial malleolus. Dissection was taken down through the fascia. Care was taken not to disrupt the saphenous vein. The fracture was easily identified. It was reduced with a reduction clamp and held in place with K wires. A Synthes medial malleolus hook plate was then applied. A single compression screw was placed. The screw was then placed up perpendicular to the fracture site. 2 locking screws were placed proximally. Fluoroscopic images showed anatomic reduction and good alignment of the plate. Attention was turned to the lateral side. A long lateral incision was made. Dissection was taken down through the fascia. Care was taken not to disrupt the intermediate branch of the peroneal nerve. The fracture was fully identified. The fracture was reduced with reduction clamps and K wires were placed for provisional fixation. A Synthes 10 hole one third tubular locking plate was then placed. A compression screw was placed both proximally and distally. The K wires were then removed. 3 additional locking screws were placed both proximally and distally. This gave good fixation. The butterfly fragment was tied in place with #1 Vicryl suture. Fin al fluoroscopic images showed anatomic reduction. The ankle was then stressed and there was no disruption of the syndesmosis. The lateral wound was then irrigated. The deep fascia was closed with #0 Vicryl. Skin was closed with 2-0 Vicryl and fran. The medial side was then closed with 2-0 Vicryl and fran. She was then placed in a trauma splint. She was then extubated and transferred to a hospital bed. She was taken to the postanesthesia care unit in stable condition. She tolerated the procedure well. Cristofer Frausto PA-C, was present for the entire procedure. He was critical for pa tient positioning, prepping, draping, retraction exposure, wound closure and application of sterile dressing. I attest to the content of the Intraoperative Record and any orders documented therein. Any exceptions are noted below.
--- NOTE | 2022-12-02 14:52 | Fluoroscopy Report ---
FL ankle RT 2V CLINICAL HISTORY: RIGHT ANKLE ORIFright ankle ORIF COMPARISON STUDY: CT right ankle 12/01/2022 FLUOROSCOPY TIME: 22.8 seconds FLUOROSCOPY IMAGES: 2 EXPOSURE DOSE: 0.57 mGy FINDINGS: Plate and screw fusion of the fibular diaphysis and medial malleolus fixating the acute com minuted fractures. There is improved near anatomic alignment. Satisfactory alignment of the acute pos terior malleolar fracture. Expected postoperative soft tissue swelling with deep tissue air. IMPRESSION: Fluoroscopic assistance as above. ACT 112: Negative or not required by law. Electronically signed by: Andrei Giles M.D. 12/02/2022 2:51 PM
--- NOTE | 2022-12-02 15:26 | XRay Report ---
XR ankle RT min 3V routine HISTORY: 52 years-old Female post op ORIF of the right ankle COMPARISON: 12/01/2022 TECHNIQUE: 3 views of the right ankle FINDINGS: Plate and screw fusion of the fibular diaphysis and medial malleolus fixating the acute comminuted fr actures. There is improved near anatomic alignment. Satisfactory alignment of the acute posterior mal leolar fracture. Expected postoperative soft tissue swelling with deep tissue air. Overlying skin sta ples with casting material. IMPRESSION: Satisfactory alignment of the acute distal tibial and fibular fractures status post ORIF. ACT 112: Negative or not required by law. The above report was generated using voice recognition software. It may contain grammatical, syntax o r spelling errors. Electronically signed by: Andrei Giles M.D. 12/02/2022 3:24 PM
[2022-12-02] MEDS ORDERED: PROMETHAZINE HCL 6.25 MG in SODIUM CHLORIDE 0.9% 50 ML IV PRN (15:32)
[2022-12-02] MEDS ORDERED: PROMETHAZINE HCL INJ 25 MG/ML 1 ML VIAL ONE (15:34)
[2022-12-02] MEDS ORDERED: SODIUM CHLORIDE 0.9% 50 ML BAG ONE (15:34)
--- NOTE | 2022-12-02 16:49 | Anesthesiology Progress Note ---
Date of Service December 02, 2022 Anesthesia Post Procedure Vital Signs Vital Signs: Temp Pulse Pulse Pulse Resp BP Pulse Ox 12/02/22 16:30 36.7 C 90 17 132/83 91 12/02/22 16:05 82 16 131/83 98 12/02/22 15:55 82 15 144/83 H 99 12/02/22 15:45 85 20 136/84 96 12/02/22 15:35 79 15 144/75 H 96 12/02/22 15:25 89 12 150/80 H 96 12/02/22 15:15 94 H 14 139/86 96 12/02/22 15:05 99 H 20 151/91 H 96 12/02/22 14:59 36.0 C L 102 H 15 142/88 H 95 12/02/22 11:43 37 C 100 H 18 141/88 H 95 12/02/22 08:19 37.8 C H 107 H 16 139/89 94 12/01/22 20:55 37.3 C 113 H 20 156/80 H 96 12/01/22 19:00 96 H 18 146/85 H 95 O2 Del Method O2 Flow Rate 12/02/22 16:30 Room Air 12/02/22 16:05 Nasal Cannula 2 12/02/22 15:55 Nasal Cannula 2 12/02/22 15:45 Nasal Cannula 2 12/02/22 15:35 Nasal Cannula 2 12/02/22 15:25 Nasal Cannula 2 12/02/22 15:15 Nasal Cannula 2 12/02/22 15:05 Oxymask 10 12/02/22 14:59 Oxymask 10 12/02/22 11:43 Room Air 12/02/22 08:19 Room Air 12/01/22 20:55 Room Air 12/01/22 19:00 Room Air Pain Intensity Ankle: Pain Intensity: 7 Right Lateral Ankle: Pain Intensity: 5 Transfer of Care Handoff Completed per policy Notes Mental Status: alert / awake / arousable and participated in evaluation Patient Amnestic to Procedure: Yes Nausea / Vomiting: improving with treatment Pain: adequately controlled Airway Patency, RR, SpO2: stable & adequate BP & HR: stable & adequate Hydration State: stable & adequate Anesthetic Complications: no major complications apparent and Pt Satisfied with anesthetic care
[2022-12-03] MEDS: oxyCODONE HCL IR 5 MG TAB (IMMEDIATE RELEASE) PO PRN ×4 (00:20→23:15)
[2022-12-03] MEDS: HYDROmorphone INJ 1 MG/ML SYRINGE IV PRN ×3 (02:41→12:22)
[2022-12-03] MEDS: ACETAMINOPHEN 500 MG TAB PO SCH ×3 (05:52→20:17)
[2022-12-03 06:38] LABS: Hematocrit (blood only) 33.4 % (37.0-47.0); Hemoglobin 11.2 g/dl (12.0-16.0); Mean Corpuscular Hemoglobin 29.3 pg (25.0-34.0); Mean Corpuscular Hgb Conc 33.5 g/dL (32.0-36.0); Mean Corpuscular Volume 87.4 fL (80.0-100.0); Mean Platelet Volume 10.2 fL (9.4-12.4); Platelet Count 265 K/uL (130-400); RDW Coefficient of Variation 13.4 % (11.5-14.5); RDW Standard Deviation 42.6 fL (36.4-46.3); Red Blood Count 3.82 M/uL (4.20-5.40); White Blood Count 13.13 K/ul (4.8-10.8)
[2022-12-03 06:57] LABS: Calcium 8.5 mg/dl (8.5-10.1); Creatinine Clr Calc Pharmacy 100.2 ml/min; Est GFR (African American) 96.1 ml/min; Est GFR (Non-African American) 82.9 ml/min; Potassium 3.9 mmol/L (3.5-5.1)
[2022-12-03] MEDS: ROSUVASTATIN CALCIUM 5 MG TAB PO SCH (07:52)
--- NOTE | 2022-12-03 08:38 | Orthopedic Progress Note ---
Date of Service December 03, 2022 Assessment & Plan (1) Status post ORIF of fracture of ankle: Overall she is doing fairly well. She will be nonweightbearing on both lower extremities for the next 6 weeks. She can be seen by physical therapy and Occupational Therapy today to help learn how to get around in a wheelchair and how to do transfers. She will follow-up with orthopedics in 2 weeks for staple removal of the right ankle. Full orthopedic discharge instructions were placed in the discharge summary. We will keep her on Eliquis 2.5 mg twice a day for DVT prophylaxis for the next 6 weeks. She is orthopedically stable for discharge when medically ready. Subjective Cathie was seen and examined at bedside this morning. Overall she is doing okay. She is not having too much pain. She is nonweightbearing on both legs.. Review of Systems All systems reviewed & are unremarkable except as noted in HPI & below. Physical Exam On physical examination of the right ankle, the trauma splint is clean and dry. She has motion of her toes. Examination of her left knee shows a knee immobilizer in place.. Results & Data Results & Data Laboratory Results . Diagnostic Findings Postoperative x-rays of the right ankle show the fracture to be in anatomic alignment and good alignment of the hardware.. PG Care Time/CCT Total # of Minutes Spent Total Time Spent with Patient: Total time spent is greater than 50% in coordination of care (as documented) at patient's floor/unit and/or counseling patient: Coding Level of Care Code 94285 Post Operative Follow-Up Diagnoses Status post ORIF of fracture of ankle Z98.890; Z87.81
[2022-12-03] MEDS ORDERED: ASPIRIN 81 MG ECTAB PO SCH (09:00)
[2022-12-03] MEDS: APIXABAN 2.5 MG TAB PO SCH ×2 (09:16→20:18)
--- NOTE | 2022-12-03 09:28 | Hospitalist Progress Note ---
Date of Service December 03, 2022 Assessment & Plan (1) Ankle fracture: Plan: Presented with right ankle pain following a fall 12/01, with right lower extremity imaging showing trimalleolar fracture Tylenol 1000mg q8h scheduled, add toradol 10mg q8h scheduled, increase oxycodone to 10mg dosing, with Dilaudid as needed for breakthrough pain Orthopedics consulted, s/p surgical fixation of right trimalleolar fracture 12/02/2022 Ultimately for discharge home with PT, family support, nonweightbearing for 6 weeks (2) Mild obstructive sleep apnea: Plan: CPAP HS (3) Hyperlipidemia: Plan: Continue rosuvastatin (4) Knee pain, left: Plan: In the setting of fall with other injuries as described above Pain control also described above, but can also use ice for knee pain and swelling (5) Leukocytosis: Plan: WBC count of 13.89 -> 13.13, no previous labs to compare, will repeat tomorrow but do anticipate this is stress response No evidence of localizable infection Plan VTE Prophylaxis - will defer to orthopedics post operatively Diet - n.p.o. until after surgery, then can have regular diet Disposition - med/surg Admission and Anticipated Discharge Date Admission Date: December 01, 2022 Subjective No acute events overnight. Much difficulty and frustration with transfer from bed to wheelchair. Pain in right ankle and left knee still significant, though helped with PRNs. No other complaints. Review of Systems Review of Systems: All systems reviewed & are unremarkable except as noted in Subjective Physical Exam Constitutional: WD/WN, vitals as above Respiratory: normal respiratory effort, lungs clear to auscultation Cardiovascular: RRR, no murmur, no edema Gastrointestinal (Abdomen): normal bowel sounds, soft, nontender, no hepatosplenomegaly Skin: no rashes, warm and dry Psychiatric: A+Ox3, euthymic affect Results & Data Results & Data ([facility]) Vital Signs (Past 12 Hours) Vital Signs Temp Pulse Resp BP Pulse Ox O2 Del Method O2 Flow Rate 12/03/22 06:58 36.9 C 92 H 16 118/81 95 Room Air 12/03/22 02:44 38.1 C H 94 H 18 98/62 L 94 Room Air 12/02/22 23:06 36.9 C 104 H 16 112/68 95 Nasal Cannula 2 PG Care Time/CCT Total # of Minutes Spent Total Time Spent with Patient: Total time spent is greater than 50% in coordination of care (as documented) at patient's floor/unit and/or counseling patient: Coding Level of Care Code 45834 SUB INP/OBS CARE 235MIN Diagnoses Ankle fracture S82.899A Mild obstructive sleep apnea G47.33 Hyperlipidemia E78.5 Knee pain, left M25.562 Leukocytosis D72.829
[2022-12-03] MEDS: KETOROLAC TROMETHAMINE 10 MG TABLET PO SCH ×2 (13:48→20:17)
[2022-12-04 05:53] LABS: Hematocrit (blood only) 33.5 % (37.0-47.0); Hemoglobin 11.1 g/dl (12.0-16.0); Mean Corpuscular Hemoglobin 29.1 pg (25.0-34.0); Mean Corpuscular Hgb Conc 33.1 g/dL (32.0-36.0); Mean Corpuscular Volume 87.7 fL (80.0-100.0); Platelet Count 248 K/uL (130-400); RDW Coefficient of Variation 13.6 % (11.5-14.5); RDW Standard Deviation 43.8 fL (36.4-46.3); Red Blood Count 3.82 M/uL (4.20-5.40); White Blood Count 10.58 K/ul (4.8-10.8)
[2022-12-04] MEDS: KETOROLAC TROMETHAMINE 10 MG TABLET PO SCH ×3 (05:54→21:11)
[2022-12-04] MEDS: ACETAMINOPHEN 500 MG TAB PO SCH ×3 (05:54→21:11)
[2022-12-04 06:11] LABS: BUN Creatinine Ratio 20.7 (10-20); Calcium 8.5 mg/dl (8.5-10.1); Est GFR (African American) 94.7 ml/min; Est GFR (Non-African American) 81.7 ml/min
[2022-12-04] MEDS: APIXABAN 2.5 MG TAB PO SCH ×2 (07:22→21:11)
[2022-12-04] MEDS: ROSUVASTATIN CALCIUM 5 MG TAB PO SCH (07:22)
[2022-12-04] MEDS: oxyCODONE HCL IR 5 MG TAB (IMMEDIATE RELEASE) PO PRN ×3 (07:25→23:23)
--- NOTE | 2022-12-04 08:27 | Discharge Summary ---
Discharge Summary Date of Service December 04, 2022 Admission HPI Per Admitting Provider Cathie Lozano is a 52 year old female who presents to the ER with right ankle pain following a fall from 1 foot onto rock pile while hiking. No chest pain, shortness of breath or dizziness prior to falling. Severe pain in her right ankle and knee following fall. Unable to weight bear. Severity 8/10. No other injuries noted from the fall. No history of strokes or heart attacks. She feels she is unfit but no significant chest pain or shortness of breath with walking. Principal Dx & Hospital Course #1 = Principal Diagnosis (1) Ankle fracture: Presented with right ankle pain following a fall 12/01, with right lower extremity imaging showing trimalleolar fracture Tylenol 1000mg q8h scheduled, add toradol 10mg q8h scheduled, increase oxycodone to 10mg dosing, with Dilaudid as needed for breakthrough pain Orthopedics consulted, s/p surgical fixation of right trimalleolar fracture 12/02/2022 Ultimately for discharge home with PT, family support, nonweightbearing for 6 weeks (2) Mild obstructive sleep apnea: CPAP HS (3) Hyperlipidemia: Continue rosuvastatin (4) Knee pain, left: In the setting of fall with other injuries as described above Pain control also described above, but can also use ice for knee pain and swelling (5) Leukocytosis: WBC count of 13.89 -> 13.13, no previous labs to compare, will repeat tomorrow but do anticipate this is stress response No evidence of localizable infection Plan VTE Prophylaxis - will defer to orthopedics post operatively Diet - n.p.o. until after surgery, then can have regular diet Disposition - med/surg Updated Medication List Medication Instructions Recorded Confirmed Type rosuvastatin 5 mg tablet 5 mg PO DAILY 01/26/21 12/01/22 History Hospital Stay Data Procedures Performed Operation Date: 12/02/22 08:20 Actual Procedures p Right Open Reduction Internal Fixation Ankle(Right) - Cristofer Ruano DO Diagnostic Imagining Performed 12/01/22 20:15 CT ankle RT wo con Stat 12/02/22 FL ankle RT 2V Routine 12/02/22 12:15 US - OR guided needle placemen Routine Pending Results Patient Have Any Pending Studies at Discharge: No Discharge Instructions Given to Patient (Per Discharging Provider) ORTHOPEDIC INSTRUCTIONS Activity Recommendations: Nonweightbearing on both legs for the next 6 weeks Medications: Take Eliquis 2.5 mg twice a day for the next 6 weeks. Dressing Care: Leave the trauma splint in place until follow-up in the office in 2 weeks. May open up the left knee immobilizer to get air to the skin, and to bathe, but no weightbearing on the left knee. Showering: Do not get the right trauma splint wet. Follow-Up Visit: Follow-up with Dr. Ruano's PA (Cristofer Frausto) 2-3 weeks after your day of surgery. He will remove your fran and answer any questions. If you have any additional questions or concerns, Dr Ruano is usually in the office at the same time and will be available Please call the office to make an appointment for a time that works for you. Coding Diagnoses Ankle fracture S82.899A Mild obstructive sleep apnea G47.33 Hyperlipidemia E78.5 Knee pain, left M25.562 Leukocytosis D72.829
--- NOTE | 2022-12-04 09:15 | Hospitalist Progress Note ---
Date of Service December 04, 2022 Assessment & Plan (1) Ankle fracture: Plan: Presented with right ankle pain following a fall 12/01, with right lower extremity imaging showing trimalleolar fracture Tylenol 1000mg q8h scheduled, Toradol 10mg q8h scheduled, prn oxycodone 10mg q6h; did not need Dilaudid overnight with these changes Orthopedics consulted, s/p surgical fixation of right trimalleolar fracture 12/02/2022, have since signed off Due to difficulty with maneuvering, need for help with transfers and education on safe transfers, believe that patient would benefit from short course therapy, PT recommends as well, will have place referrals (2) Mild obstructive sleep apnea: Plan: CPAP HS (3) Hyperlipidemia: Plan: Cont rosuvastatin (4) Knee pain, left: Plan: In the setting of fall with other injuries as described above, see Ortho notes for fracture description Pain control also described above, but can also use ice for knee pain and swelling (5) Leukocytosis: Plan: WBC count of 13.89 -> 10.58, no previous labs to compare, suspect due to stress response No evidence of localizable infection Plan VTE Prophylaxis - apixiban 2.5mg BID Diet - regular diet Disposition - med/surg Admission and Anticipated Discharge Date Admission Date: December 03, 2022 Subjective Much better pain control overnight. Patient is fearful of going home, as her home is not wheelchair accessible. She discussed this with PT who recommended rehab if covered. She needs assistance with transfers and education on safe wheelchair to bed transfers and vice versa. Review of Systems Review of Systems: All systems reviewed & are unremarkable except as noted in Subjective Physical Exam Constitutional: WD/WN, vitals as above Respiratory: normal respiratory effort, lungs clear to auscultation Cardiovascular: RRR, no murmur, no edema Gastrointestinal (Abdomen): normal bowel sounds, soft, nontender, no hepatosplenomegaly Skin: no rashes, warm and dry Psychiatric: A+Ox3, euthymic affect Results & Data Results & Data ([facility]) Vital Signs (Past 12 Hours) Vital Signs Temp Pulse Pulse Resp BP Pulse Ox O2 Del Method 12/04/22 08:00 Room Air 12/04/22 07:19 88 95 Room Air 12/04/22 07:09 37.0 C 92 H 16 115/73 91 Room Air 12/03/22 20:15 37.4 C 97 H 20 116/74 95 Room Air PG Care Time/CCT Total # of Minutes Spent Total Time Spent with Patient: Total time spent is greater than 50% in coordination of care (as documented) at patient's floor/unit and/or counseling patient: Coding Level of Care Code 47652 SUB INP/OBS CARE 10/19MIN Diagnoses Ankle fracture S82.899A Mild obstructive sleep apnea G47.33 Hyperlipidemia E78.5 Knee pain, left M25.562 Leukocytosis D72.829
[2022-12-05] MEDS: ACETAMINOPHEN 500 MG TAB PO SCH ×3 (05:25→21:02)
[2022-12-05] MEDS: KETOROLAC TROMETHAMINE 10 MG TABLET PO SCH ×3 (05:25→21:02)
[2022-12-05] MEDS: ROSUVASTATIN CALCIUM 5 MG TAB PO SCH (08:02)
[2022-12-05] MEDS: APIXABAN 2.5 MG TAB PO SCH ×2 (08:02→20:38)
--- NOTE | 2022-12-05 12:33 | Hospitalist Progress Note ---
Date of Service December 05, 2022 Assessment & Plan (1) Ankle fracture: Plan: Presented with right ankle pain following a fall 12/01, with right lower extremity imaging showing trimalleolar fracture Tylenol 1000mg q8h scheduled, Toradol 10mg q8h scheduled, prn oxycodone 10mg q6h; has not needed IV Dilaudid with these changes Orthopedics consulted, s/p surgical fixation of right trimalleolar fracture 12/02/2022, have since signed off Due to difficulty with maneuvering, need for help with transfers and education on safe transfers, believe that patient would benefit from short course therapy, PT recommends as well, referrals in process by case management Eliquis 2.5 mg twice daily ordered by orthopedics for DVT prophylaxis (2) Mild obstructive sleep apnea: Plan: CPAP HS (3) Hyperlipidemia: Plan: Cont rosuvastatin (4) Knee pain, left: Plan: In the setting of fall with other injuries as described above, see Ortho notes for fracture description Pain control also described above, but can also use ice for knee pain and swelling (5) Leukocytosis: Plan: WBC count of 13.89 -> 10.58, no previous labs to compare, suspect due to stress response No evidence of localizable infection (6) Morbid obesity: Plan: Morbid obesity, BMI 41.1 kg/m*m Defer management to PCP (7) Constipation: Plan: No BM since admission, in the setting of relative immobility and opiate pain medication use for fractures as described above Did schedule MiraLAX with enema as needed per patient request. Plan VTE Prophylaxis - apixiban 2.5mg BID Diet - regular diet Disposition - med/surg Admission and Anticipated Discharge Date Admission Date: December 03, 2022 Subjective No acute events overnight. Patient with right ankle and left knee pain alleviated with ice, as needed medications. She complains of some abdominal fullness and bloating today, no BM since coming into the hospital. Having difficulty with the idea of going to the bathroom on a bedpan. Denies nausea. Review of Systems Review of Systems: All systems reviewed & are unremarkable except as noted in Subjective Physical Exam Constitutional: WD/WN, vitals as above Respiratory: normal respiratory effort, lungs clear to auscultation Cardiovascular: RRR, no murmur, no edema Gastrointestinal (Abdomen): normal bowel sounds, soft, nontender, no hepatosplenomegaly Abdomen mildly distended Skin: no rashes, warm and dry Psychiatric: A+Ox3, euthymic affect Results & Data Results & Data ([facility]) Vital Signs (Past 12 Hours) Vital Signs Temp Pulse Resp BP Pulse Ox O2 Del Method 12/05/22 08:00 Room Air 12/05/22 07:55 36.8 C 87 17 120/72 95 Room Air PG Care Time/CCT Total # of Minutes Spent Total Time Spent with Patient: Total time spent is greater than 50% in coordination of care (as documented) at patient's floor/unit and/or counseling patient: Coding Level of Care Code 26798 SUB INP/OBS CARE 10/19MIN Diagnoses Ankle fracture S82.899A Mild obstructive sleep apnea G47.33 Hyperlipidemia E78.5 Knee pain, left M25.562 Leukocytosis D72.829 Morbid obesity E66.01 Constipation K59.00
[2022-12-05] MEDS ORDERED: SOD PHOSPHATE/SOD BIPHOSPHATE ENEMA 132 ML BTL PR PRN (13:19)
[2022-12-06] MEDS: KETOROLAC TROMETHAMINE 10 MG TABLET PO SCH ×3 (05:44→20:33)
[2022-12-06] MEDS: ACETAMINOPHEN 500 MG TAB PO SCH ×3 (05:44→20:34)
--- NOTE | 2022-12-06 07:04 | Orthopedic Progress Note ---
Date of Service December 06, 2022 Assessment & Plan (1) Status post ORIF of fracture of ankle: Overall she is doing as well as expected. She will be nonweightbearing on both legs for about 6 weeks. Her right ankle is elevated. She is on Eliquis 2.5 mg twice a day. She is orthopedically stable for discharge when medically ready. Full orthopedic discharge instructions were placed in the discharge summary. She will follow-up orthopedics in 2 weeks. Evert Brand was seen and examined at bedside this morning. Overall she is doing okay. She is not having too much pain in her ankle or her knee. She understands that she needs to be nonweightbearing on both legs for now. She is currently awaiting placement at a rehab facility.. Review of Systems All systems reviewed & are unremarkable except as noted in HPI & below. Physical Exam Physical examination of the right ankle shows that the trauma splint is elevated. She has active motion of her toes. Sensations intact. Examination of her left knee shows that she is in the knee immobilizer.. Results & Data Results & Data Laboratory Results . Diagnostic Findings . PG Care Time/CCT Total # of Minutes Spent Total Time Spent with Patient: Total time spent is greater than 50% in coordination of care (as documented) at patient's floor/unit and/or counseling patient: Coding Level of Care Code 59032 Post Operative Follow-Up Diagnoses Status post ORIF of fracture of ankle Z98.890; Z87.81
[2022-12-06] MEDS: POLYETHYLENE (MIRALAX) 17 GM PACK PO SCH (08:22)
[2022-12-06] MEDS: APIXABAN 2.5 MG TAB PO SCH ×2 (08:23→20:33)
[2022-12-06] MEDS: ROSUVASTATIN CALCIUM 5 MG TAB PO SCH (08:23)
[2022-12-06] MEDS ORDERED: bisacodyL 10 MG SUPP PR STA (10:43)
[2022-12-06] MEDS: SENNA 8.6 MG TAB PO SCH (11:30)
[2022-12-06 12:45] LABS: BUN Creatinine Ratio 25.7 (10-20); Calcium 9.1 mg/dl (8.5-10.1); Creatinine Clr Calc Pharmacy 115.9 ml/min; Est GFR (African American) 114.6 ml/min; Est GFR (Non-African American) 98.9 ml/min; Magnesium 2.2 mg/dl (1.7-2.4); Potassium 4.7 mmol/L (3.5-5.1)
--- NOTE | 2022-12-06 19:24 | Hospitalist Progress Note ---
Date of Service December 06, 2022 Assessment & Plan (1) Ankle fracture: Plan: right - s/p fall x-rays with trimalleolar fracture s/p ORIF 12/02/22 by orthopedics, Dr Ruano cont the following for pain relief - Tylenol 1000mg q8h scheduled, Toradol 10mg q8h scheduled, prn oxycodone 10mg q6h eliquis 2.5mg BID for DVT proph NWB status to RLE dispo - rehab post-discharge; EXCELLENT inpatient rehab candidate will need DEXA scan as outpatient in future (2) Left tibial fracture: Plan: discussed with orthopedics today - cont NWB status to LLE with knee immobilizer in place nonoperative Rx 25-OH vit D level robust as noted above (3) Mild obstructive sleep apnea: Plan: CPAP HS (4) Hyperlipidemia: Plan: Cont rosuvastatin (5) Morbid obesity: Plan: BMI 41 (6) Constipation: Plan: improved s/p enema yesterday for maintenance - add senokot to miralax; take both daily (7) DVT prophylaxis: Plan: Eliquis 2.5mg BID recommend d/c on such and Rx for 6 weeks (or longer depending on duration of NWB status) Plan dispo - [facility] rehab? unsafe to return home; her house is not yet equipped to accommodate her b/l leg NWB status Admission and Anticipated Discharge Date Admission Date: December 03, 2022 Subjective patient did have BM yesterday with use of enema despite such she still feels bloated & full with poor appetite no nausea or emesis, however patient frustrated by her current status including non-weightbearing status to both legs she states her home is not equipped - at least not currently - to accommodate her NWB status she is motivated to attend inpatient rehab to learn all techniques etc to optimize her function c/o mild left knee & right ankle pain but no worse than prior Review of Systems Review of Systems: gen - no fevers cv - no chest pain pulm - no dyspnea GI - constipation/bloating Physical Exam Physical Exam: gen - pleasant, NAD mouth - MMM neck - no JVD heart - RRR, s1 s2, no murmur lungs - slightly decreased BS bases otherwise CTA b/l abd - soft, slightly distended, BS+, NT musculo - left knee in immobilizer; right ankle/foot/distal leg in large splint; toes exposed right foot with normal cap refill; pulses b/l feet 2+ psych - a/o x 3 Results & Data Results & Data ([facility]) Vital Signs (Past 12 Hours) Vital Signs Temp Pulse Resp BP Pulse Ox O2 Del Method 12/06/22 16:00 36.8 C 93 H 18 119/70 97 Room Air 12/06/22 07:30 Room Air 12/06/22 07:40 36.7 C 85 18 132/85 96 Room Air Laboratory Results Laboratory Results - last 24 hr 12/06/22 12/06/22 11:29 11:29 Sodium 138 Potassium 4.7 Chloride 105 Carbon Dioxide 24 Anion Gap 9 BUN 18 Creatinine 0.70 Est Cr Clr Drug Dosing 115.9 Est GFR ( Amer) 114.6 Est GFR (Non-Af Amer) 98.9 BUN/Creatinine Ratio 25.7 H Glucose 99 Calcium 9.1 Magnesium 2.2 25-OH Vitamin D Total 44.7 PG Care Time/CCT Total # of Minutes Spent Total Time Spent with Patient: Total time spent is greater than 50% in coordination of care (as documented) at patient's floor/unit and/or counseling patient: Coding Level of Care Code 04260 SUB INP/OBS CARE 2/35MIN Diagnoses Ankle fracture S82.899A Left tibial fracture S82.202A Mild obstructive sleep apnea G47.33 Hyperlipidemia E78.5 Morbid obesity E66.01 Constipation K59.00 DVT prophylaxis Z29.9
[2022-12-07] MEDS: ACETAMINOPHEN 500 MG TAB PO SCH ×3 (05:05→20:07)
[2022-12-07] MEDS: KETOROLAC TROMETHAMINE 10 MG TABLET PO SCH ×3 (05:05→20:06)
[2022-12-07] MEDS: ROSUVASTATIN CALCIUM 5 MG TAB PO SCH (08:29)
[2022-12-07] MEDS: APIXABAN 2.5 MG TAB PO SCH ×2 (08:29→20:07)
[2022-12-07] MEDS: POLYETHYLENE (MIRALAX) 17 GM PACK PO SCH ×2 (08:29→21:22)
[2022-12-07] MEDS: SENNA 8.6 MG TAB PO SCH (08:29)
--- NOTE | 2022-12-07 14:59 | Hospitalist Progress Note ---
Date of Service December 07, 2022 Assessment & Plan (1) Ankle fracture: Plan: right - s/p fall x-rays with trimalleolar fracture s/p ORIF 12/02/22 by orthopedics, Dr Ruano cont the following for pain relief - Tylenol 1000mg q8h scheduled, Toradol 10mg q8h scheduled, prn oxycodone 10mg q6h today is day #5 of toradol - will d/c tonight eliquis 2.5mg BID for DVT proph NWB status to RLE dispo - rehab post-discharge; EXCELLENT inpatient rehab candidate; insurance has approved [facility]; await bed there will need DEXA scan as outpatient in future (2) Left tibial fracture: Plan: nondisplaced cont NWB status to LLE with knee immobilizer in place nonoperative Rx 25-OH vit D level robust as noted above (3) Mild obstructive sleep apnea: Plan: CPAP HS (4) Hyperlipidemia: Plan: Cont rosuvastatin (5) Morbid obesity: Plan: BMI 41 (6) Constipation: Plan: increase miralax to BID dosing cont senna dulcolax suppos x 1 today if desired (7) DVT prophylaxis: Plan: Eliquis 2.5mg BID recommend d/c on such and Rx for 6 weeks (or longer depending on duration of NWB status) Plan ongoing anorexia -- checked u/a - not terribly suspicious for UTI, but culture sent urine very concentrated and SG high - patient was dizzy today with moving -- NS x 2 liters overnight repeat BMP in am updated by phone this evening hopefully to [facility] soon when bed is available Admission and Anticipated Discharge Date Admission Date: December 03, 2022 Subjective pt c/o ongoing poor appetite has pain in R ankle mainly when she is up in the chair minimal L knee pain continues with constipation issues still feels bloated but no N/V no other new issues Review of Systems Review of Systems: gen - no fevers or chills or infectious symptoms HENT - no sore throat or runny nose cv - no cp pulm - no cough or dyspnea GI - no vomiting - had some mild bladder pain yesterday neuro - mild dizziness w/ getting up into the chair Physical Exam Physical Exam: gen - pleasant, NAD mouth - MM slightly dry neck - no JVD heart - RRR, s1 s2, no murmur lungs - CTA b/l abd - soft, NT, BS+, scantly distended musculo - left knee in immobilizer; right ankle/foot/distal leg in large splint; toes exposed right foot with normal cap refill; pulses b/l feet 2+ psych - a/o x 3 Results & Data Results & Data Vital Signs (Past 12 Hours) Vital Signs Temp Pulse Resp BP Pulse Ox O2 Del Method 12/07/22 08:30 Room Air 12/07/22 07:41 37.1 C 88 18 129/85 95 Room Air Laboratory Results Laboratory Results - last 24 hr 12/07/22 18:45 Urine Color Dark Yellow Urine Appearance Clear Urine pH 5.0 Ur Specific [place] > 1.045 H Urine Protein Trace H Urine Glucose (UA) Negative Urine Ketones Trace H Urine Blood Negative Urine Nitrite Negative Urine Bilirubin Negative Urine Urobilinogen Negative Ur Leukocyte Esterase Negative Urine WBC (Auto) 1-5 Urine RBC (Auto) 5-10 H U Hyaline Cast (Auto) 5-10 H U Epithel Cells (Auto) 10-20 H Urine Bacteria (Auto) Negative Diagnostic Findings urine cx sent PG Care Time/CCT Total # of Minutes Spent Total Time Spent with Patient: Total time spent is greater than 50% in coordination of care (as documented) at patient's floor/unit and/or counseling patient: Coding Level of Care Code 24632 SUB INP/OBS CARE 2/35MIN Diagnoses Ankle fracture S82.899A Left tibial fracture S82.202A Mild obstructive sleep apnea G47.33 Hyperlipidemia E78.5 Morbid obesity E66.01 Constipation K59.00 DVT prophylaxis Z29.9
[2022-12-07 19:11] LABS: Appearance Urine Clear (Clear); Bacteria Urine Automated Negative (Negative); Bilirubin Urine Negative (Negative); Blood Urine Negative (Negative); Color Urine Dark Yellow; Glucose Urine UA Negative (Negative); Ketones Urine Trace (Negative); Leukocyte Esterase Urine Negative (Negative); Nitrite Urine Negative (Negative); Protein Urine Trace (Negative); Specific Gravity Urine > 1.045 (1.000-1.030); Urobilinogen Urine Negative (Negative)
[2022-12-07] MEDS ORDERED: bisacodyL 10 MG SUPP PR STA (20:21)
[2022-12-07] MEDS: SODIUM CHLORIDE 0.9% 1000ML 1,000 ML IV SCH (21:22)
[2022-12-08] MEDS: SODIUM CHLORIDE 0.9% 1000ML 1,000 ML IV SCH (05:17)
[2022-12-08] MEDS: ACETAMINOPHEN 500 MG TAB PO SCH ×3 (05:17→21:10)
[2022-12-08] MEDS: KETOROLAC TROMETHAMINE 10 MG TABLET PO SCH (05:18)
[2022-12-08] MEDS: APIXABAN 2.5 MG TAB PO SCH ×2 (08:45→21:11)
[2022-12-08] MEDS: SENNA 8.6 MG TAB PO SCH (08:46)
[2022-12-08] MEDS: POLYETHYLENE (MIRALAX) 17 GM PACK PO SCH ×2 (08:46→21:11)
[2022-12-08] MEDS: ROSUVASTATIN CALCIUM 5 MG TAB PO SCH (08:46)
[2022-12-08 09:14] LABS: BUN Creatinine Ratio 31.3 (10-20); Calcium 8.4 mg/dl (8.5-10.1); Creatinine Clr Calc Pharmacy 121.1 ml/min; Est GFR (African American) 116.3 ml/min; Est GFR (Non-African American) 100.4 ml/min; Potassium 4.2 mmol/L (3.5-5.1)
--- NOTE | 2022-12-08 20:58 | Hospitalist Progress Note ---
Date of Service December 08, 2022 Assessment & Plan (1) Ankle fracture: Plan: right - s/p fall x-rays with trimalleolar fracture s/p ORIF 12/02/22 by orthopedics, Dr Ruano cont the following for pain relief - Tylenol 1000mg q8h scheduled, prn oxycodone 10mg q6h completed 5 days of toradol orally -- this has been d/c consider a few days of PO celebrex BID as she doesn't like to take the narcotics eliquis 2.5mg BID for DVT proph NWB status to RLE dispo - rehab post-discharge; EXCELLENT inpatient rehab candidate; insurance has approved [facility]; await bed there will need DEXA scan as outpatient in future (2) Left tibial fracture: Plan: nondisplaced cont NWB status to LLE with knee immobilizer in place nonoperative Rx 25-OH vit D level robust as noted above (3) Mild obstructive sleep apnea: Plan: CPAP HS (4) Hyperlipidemia: Plan: Cont rosuvastatin (5) Morbid obesity: Plan: BMI 41 (6) Constipation: Plan: resolved cont miralax BID cont senna dulcolax suppos prn (7) DVT prophylaxis: Plan: Eliquis 2.5mg BID recommend d/c on such and Rx for 6 weeks (or longer depending on duration of NWB status) Plan ongoing anorexia -- checked u/a and urine cx -- negative appetite IMPROVED today volume status improved s/p 2 L NS overnight repeat BMP today wnl updated by phone yesterday evening hopefully to [facility] soon when bed is available I asked nursing to contact ortho to see if something could be placed between the immobilizer and her skin to help with that discomfort Admission and Anticipated Discharge Date Admission Date: December 03, 2022 Subjective patient had a good day today appetite is improved pain is controlled just overall felt much better today had another BM last pm only complaint is that the knee immobilizer on the left is causing skin irritation on the side of the leg Review of Systems Review of Systems: cv - no cp pulm - no dyspnea GI - no pain; bloating resolved Physical Exam Physical Exam: gen - pleasant, NAD, looks better today mouth - MMM neck - no JVD heart - RRR, s1 s2, no murmur lungs - CTA b/l abd - soft, NT, BS+, ND musculo - left knee in immobilizer; right ankle/foot/distal leg in large splint; toes exposed right foot with normal cap refill; pulses b/l feet 2+ immobilizer taken off leg leg with nursing assistance -- no skin breakdown; bruise present near the lateral left knee; the bar in the immobilizer is causing an indentation of the skin in the location of her discomfort psych - a/o x 3 Results & Data Results & Data Vital Signs (Past 12 Hours) Vital Signs Temp Pulse Resp BP Pulse Ox O2 Del Method 12/08/22 15:35 37.0 C 84 16 117/76 96 Room Air 12/08/22 11:44 Room Air Laboratory Results Laboratory Results - last 24 hr 12/08/22 12/08/22 08:06 08:06 Sodium 139 Potassium 4.2 Chloride 108 H Carbon Dioxide 25 Anion Gap 6 BUN 21 Creatinine 0.67 Est Cr Clr Drug Dosing 121.1 Est GFR ( Amer) 116.3 Est GFR (Non-Af Amer) 100.4 BUN/Creatinine Ratio 31.3 H Glucose 96 Calcium 8.4 L TSH 1.368 PG Care Time/CCT Total # of Minutes Spent Total Time Spent with Patient: Total time spent is greater than 50% in coordination of care (as documented) at patient's floor/unit and/or counseling patient: Coding Level of Care Code 92164 SUB INP/OBS CARE 10/19MIN Diagnoses Ankle fracture S82.899A Left tibial fracture S82.202A Mild obstructive sleep apnea G47.33 Hyperlipidemia E78.5 Morbid obesity E66.01 Constipation K59.00 DVT prophylaxis Z29.9
[2022-12-09] MEDS: ACETAMINOPHEN 500 MG TAB PO SCH (05:48)
[2022-12-09] MEDS ORDERED: CELECOXIB 100 MG CAP PO SCH (09:00)
[2022-12-09] MEDS: ROSUVASTATIN CALCIUM 5 MG TAB PO SCH (09:24)
[2022-12-09] MEDS: APIXABAN 2.5 MG TAB PO SCH (09:24)
[2022-12-09] MEDS: POLYETHYLENE (MIRALAX) 17 GM PACK PO SCH (09:24)
[2022-12-09] MEDS: SENNA 8.6 MG TAB PO SCH (09:24)
--- NOTE | 2022-12-09 11:19 | Discharge Summary ---
Date of Service December 09, 2022 Discharge Exam gen - pleasant, NAD, looks better today mouth - MMM neck - no JVD heart - RRR, s1 s2, no murmur lungs - CTA b/l abd - soft, NT, BS+, ND musculo - left knee in immobilizer; right ankle/foot/distal leg in large splint; toes exposed right foot with normal cap refill; pulses b/l feet 2+ immobilizer taken off leg leg with nursing assistance -- no skin breakdown; bruise present near the lateral left knee; the bar in the immobilizer is causing an indentation of the skin in the location of her discomfort psych - a/o x 3 Discharge Data Allergies Allergy/AdvReac Type Severity Reaction Status Date / Time Sulfa (Sulfonamide Allergy Intermediate RASH Verified 12/01/22 18:36 Antibiotics) Consultations 12/09/22 11:08 Burn CD for patient Stat Procedures Performed Operation Date: 12/02/22 08:20 Actual Procedures p Right Open Reduction Internal Fixation Ankle(Right) - Cristofer Ruano DO Ordered Studies 12/01/22 20:15 CT ankle RT wo con Stat 12/02/22 [place] ankle RT 2V Routine 12/02/22 12:15 US - OR guided needle placemen Routine Hospital Course (1) Ankle fracture: right - s/p fall x-rays with trimalleolar fracture s/p ORIF 12/02/22 by orthopedics, Dr Ruano cont the following for pain relief - Tylenol 1000mg q8h scheduled, prn oxycodone 10mg q6h completed 5 days of toradol orally -- this has been d/c consider a few days of PO celebrex BID as she doesn't like to take the narcotics eliquis 2.5mg BID for DVT proph NWB status to RLE dispo - rehab post-discharge; EXCELLENT inpatient rehab candidate; insurance has approved [facility]; await bed there will need DEXA scan as outpatient in future (2) Left tibial fracture: nondisplaced cont NWB status to LLE with knee immobilizer in place nonoperative Rx 25-OH vit D level robust as noted above (3) Mild obstructive sleep apnea: CPAP HS (4) Hyperlipidemia: Cont rosuvastatin (5) Morbid obesity: BMI 41 (6) Constipation: resolved cont miralax BID cont senna dulcolax suppos prn (7) DVT prophylaxis: Eliquis 2.5mg BID recommend d/c on such and Rx for 6 weeks (or longer depending on duration of NWB status) Discharge Plan Discharge Items Patient Disposition: Transfer Inpatient Rehab Fac Reason For Visit: FALL,TWISTED L KNEE,R ANKLE PAIN Discharge Diagnosis: 1. right ankle fracture post-surgical fixation on 12/02/22 2. left tibia fracture with use of knee immobilizer 3. constipation - resolved Activity: Per Instructions section Weightbearing: Left non-weightbearing and Right non-weightbearing Non-emergency contact: Primary Care Provider and Surgeon Call non-emergency contact if: you have any medication questions, your symptoms worsen, your pain is not controlled, your pain is worsening and you have a fever Follow-up/Referrals: Cristofer Chi [Primary Care Provider] - Cristofer Ruano DO [Physician] - (2 weeks for recheck of R ankle and L tibia fractures) Diet: Regular Addtl Attending Provider Instructions: ORTHOPEDIC INSTRUCTIONS Activity Recommendations: Nonweightbearing on both legs for the next 6 weeks Medications: Take Eliquis 2.5 mg twice a day for the next 6 weeks. Dressing Care: Leave the trauma splint in place until follow-up in the office in 2 weeks. May open up the left knee immobilizer to get air to the skin, and to bathe, but no weightbearing on the left knee. Showering: Do not get the right trauma splint wet. Follow-Up Visit: Follow-up with Dr. Ruano's PA (Cristofer Frausto) 2-3 weeks after your day of surgery (right ankle surgery date 12/02/22). He will remove your fran and answer any questions. If you have any additional questions or concerns, Dr Ruano is usually in the office at the same time and will be available Please call the office to make an appointment for a time that works for you. Additional instructions - 1. consider removal of abbott in the next 48 hours if pain is controlled, patient able to use a bedpan or bedside commode, etc. 2. DEXA bone density test after discharge - PCP can arrange. Pending Studies at Discharge: No Stand-Alone Forms: My [employer], Smoking Cessation Skilled Items Patient informed of condition?: Yes DNR: No Discharge Level of Care: Acute rehab Communicable Disease: No Discharge Prognosis: Stable Lines: None Urinary Catheter: Yes Medications and DC Order Prescriptions: New acetaminophen [Tylenol Extra Strength] 500 mg Tablet 1,000 mg PO Q8 10 Days Qty: 60 0RF Eliquis 2.5 mg Tablet 2.5 mg PO BID 42 Days Qty: 84 0RF polyethylene glycol 3350 [Miralax] 17 gram Powder In Packet 17 g PO DAILY Qty: 30 0RF celecoxib [Celebrex] 100 mg Capsule 100 mg PO BID 10 Days Qty: 20 0RF oxycodone 5 mg Tablet 5 mg PO Q6H PRN (Reason: pain) Qty: 1 0RF sennosides [Senokot] 8.6 mg Tablet 17.2 mg PO QAM PRN (Reason: constipation) Qty: 30 0RF cholecalciferol (vitamin D3) 50 mcg (2,000 unit) capsule 50 mcg PO DAILY Qty: 30 1RF Continued rosuvastatin 5 mg tablet 5 mg PO DAILY Discharge Orders: Discharge Order (Routine); Ordered 12/09/22 Ordered By: Mundo Gillette Admission Data Admit Date/Time: 12/03/22 12:49 Attending Provider: Mundo Gillette Admit Provider: Mundo Flores Primary Care Provider: Cristofer Chi Other Providers: [facility] ; [facility] ; [facility] ; [facility] Other Interventions: Discharge Summary Assessment (RN) Last Done: 12/09/22 10:10 Coding Diagnoses Ankle fracture S82.899A Left tibial fracture S82.202A Mild obstructive sleep apnea G47.33 Hyperlipidemia E78.5 Morbid obesity E66.01 Constipation K59.00 DVT prophylaxis Z29.9
== END 2022-12-09 12:30 | DRG 493 ==
LOC: 3N 16:09 → ED 16:09 → SUATTDRO 19:16 → 3N 21:13 → SUATTDRO 12-03 12:49 → 3N 12-05 16:16
DX: Y92.89 Other specified places as the place of occurrence of the external cause; Z88.2 Allergy status to sulfonamides; G47.33 Obstructive sleep apnea (adult) (pediatric); R63.0 Anorexia; S82.102A Unspecified fracture of upper end of left tibia, initial encounter for closed fracture; K59.00 Constipation, unspecified; S82.851A Displaced trimalleolar fracture of right lower leg, initial encounter for closed fracture; E78.5 Hyperlipidemia, unspecified; X50.1XXA Overexertion from prolonged static or awkward postures, initial encounter; Z68.41 Body mass index [BMI] 40.0-44.9, adult; E66.01 Morbid (severe) obesity due to excess calories